=== PATIENT | female | born 1995 | race Caucasian/White ===

== ENCOUNTER 2023-06-30 15:06 | Outpatient (CLI) | payer OTHER, SELFPAY ==
[2023-07-03 06:21] LABS: Progesterone 8.3 ng/mL (***)
== END 2023-06-30 15:07 | disposition home or self-care (01) ==
LOC: ANHLAB 15:08
PROVIDERS: Visit Provider Student in an Organized Health Care Education/Training Program
DX: N91.2 Amenorrhea, unspecified (principal)
CPT/HCPCS: 36415; 84144

== ENCOUNTER 2023-07-02 11:55 | Outpatient (CLI) | payer OTHER, SELFPAY ==
--- NOTE | ~2023-07-02 | US_ITS ---
Pelvic ultrasound. Clinical History: Pelvic pain Technique: Realtime transabdominal and transvaginal scanning of the pelvis was performed. Color flow Doppler and Doppler spectral analysis were performed. Findings: The uterus is anteverted. The endometrial stripe has a thickness of 8 mm. No focal mass is identified. The right ovary measures 1.9 x 2.7 x 1.6 cm. No significant right ovarian or adnexal mass is seen. The left ovary measures 1.6 x 2.9 x 1.2 cm. No significant left ovarian or adnexal mass is seen. There is no evidence of free fluid in the cul de sac. Impression: Unremarkable pelvic ultrasound. Reviewed, dictated and finalized at location . IST Impression: Unremarkable pelvic ultrasound.
== END 2023-07-02 11:56 ==
LOC: MICIMG 11:57
PROVIDERS: PCP Student in an Organized Health Care Education/Training Program; Visit Provider Student in an Organized Health Care Education/Training Program
DX: R10.2 Pelvic and perineal pain (principal)
CPT/HCPCS: 76830; 76856

== ENCOUNTER 2024-02-06 14:13 | Outpatient (CLI) | payer OTHER, SELFPAY ==
[2024-02-07 02:54] LABS: Progesterone 10.6 ng/mL
[2024-02-08 06:29] LABS: FSH 3.1 mIU/mL
[2024-02-14 21:28] LABS: Estradiol, Ultrasensitive 134 pg/mL
== END 2024-02-06 14:14 | disposition home or self-care (01) ==
LOC: ANHLAB 14:15
PROVIDERS: PCP Student in an Organized Health Care Education/Training Program; Visit Provider Student in an Organized Health Care Education/Training Program
DX: Z30.09 Encounter for other general counseling and advice on contraception (principal)
CPT/HCPCS: 36415; 82670; 83001; 83036; 84144; 84443

== ENCOUNTER 2024-02-23 10:41 | Outpatient (CLI) | payer OTHER, SELFPAY ==
--- NOTE | ~2024-02-23 | XR_ITS ---
EXAMINATION: XR hysterosalpingogram DATE: 02/23/2024 12:17 INDICATION: Female infertility, unspecified. TECHNIQUE: Fluoroscopy was performed by the radiologist during contrast infusion into the endometrial cavity of the uterus by the primary physician. Fluoroscopy exposure time was 0.2 minutes. The total number of images was 4. FINDINGS: The intrauterine cavity is normal in morphology. The fallopian tubes are normal in caliber. There is normal free intraperitoneal spillage of contrast on either side. IMPRESSION: 1. Normal hysterosalpingogram. Reviewed, dictated and finalized at location A.
[2024-02-23 11:58] LABS: Beta HCG Quantitative < 2.39 mIU/ML
== END 2024-02-23 10:42 | disposition home or self-care (01) ==
LOC: ANHIMG 10:41
PROVIDERS: PCP Student in an Organized Health Care Education/Training Program; Visit Provider Student in an Organized Health Care Education/Training Program
DX: N97.9 Female infertility, unspecified (principal)
CPT/HCPCS: 36415; 58340; 74740; 84702

== ENCOUNTER 2025-01-13 08:40 | Observation (INO) | payer OTHER, SELFPAY ==
--- OUTSIDE RECORDS SUMMARY | 2025-01-13 08:52 | XMS_ITS | Clinical Summary ---
Author Organization [facility] Address [address] [place] [address] Care Team Providers Care Turfgrass Technician Name Role Phone Unavailable Primary Care Provider Unavailabl e Source Comments [facility],non-owned Affiliates and Associated Physician Practices is amultiple site organization consisting of ambulatory clinics and hospital sitesin [place], [place], [place] and [place]. This disclosure is being madepursuant to the Care Everywhere program and may not contain all information available regarding this patient. Last updated 18.[facility] Health Encounters Date Type Department Care Team Description 01/11/2025 1:00 PM CDT - 01/11/2025 11:59 PM CDT Hospital Encounter [facility] Maternal & Care [address] [place] [id number] Lul Ribeiro MD Discharge Disposition: Home or Self Care from Last 3 Months Social History Tobacco Use Types Packs/Day Years Used Date Smoking Tobacco: Never Assessed Estimated Date of Delivery Comme nts Yes 06/03/2025 Based on last me nstrual period of 08/27/2024 Sex and Gender Information Value Date Recorded Sex Assigned at Not on file Legal Sex Female 11:19 AM CDT Gender Identity Not on file Sexual Orientation Not on file Plan of Treatment Upcoming Encounters Date Type Department Care Team (Late st Contact Info) Description 02/08/2025 1:45 PM CDT Appointment [facility] Maternal & Care [address] [place] [address] Health Maintenance Due Date Last Done Comments HIV SCREENING 2009 HEPATITIS C SCREENING 03/24/2012 DTAP/TDAP/TD VACCINES (1 - Tdap) 2013 HEPATITIS B VACCINE (1 of 3 - 19+ 3-dose series) 2013 HPV VACCINE (1 - 3-dose SCDM series) 2021 COVID-19 VACCINE (3 - 2023-2 5 season) 2024 07/11/2020, 06/13/2020 DEPRESSION SCREENING 06/02/2024 INFLUENZA VACCINE (#1) 2025 6, 02/21/2012 OB-TDAP CURRENT 03/04/2025 08/19/2008 Respiratory Syncytial Virus (RSV) Vaccine Pt: or over 60 yrs (1 - Risk 1-dose series) 04/08/2025 ZOSTER VACCINE (1 of 2) 2044 HIB VACCINE Aged Out No longer eligi ble based on patient's age to complete this topic MENINGOCOCCAL (Group B) VACCINE SHARED DECISION-MAKING Aged Out No longer eligible based on patient's age to complete this topic MENINGOCOCCAL GROUPS A/C/Y/W VACCINE Aged Out No longer eligible b ased on patient's age to complete this topic PNEUMOCOCCAL VACCINE Aged Out No long er eligible based on patient's age to complete this topic Procedures Procedure Name Priority Date/Time Associated Diagnosis Comments SONOGRAM - COMPLETE Routine 01/11/2025 1:12 PM CDT Encounter for anatomic survey (HCC) 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 Initial weight 69 kg, 152 lb. Initial BMI 25.29 kg/m Method ====== Transabdominal and transvaginal ultrasound. View: Sufficient ========= Lizama . Number of fetuses: 1 Dating ====== Date Details Gest. age GIOVANA LMP 08/27/2024 19 w + 4 d 06/03/2025 U/S 01/11/2025 based upon AC, BPD, Femur, HC 19 w + 6 d 06/01/2025 Assigned dating based on the LMP, selected on 01/11/2025 19 w + 4 d 06/03/2025 General Evaluation Cardiac activity present. FHR 153 bpm. Presentation: breech Placenta: Placental site: anterior. Anterior Placenta Previa Umbilical cord: Cord vessels: 3 vessel cord. Insertion site: normal insertion Amniotic fluid: Amount of AF: normal. MVP 6.8 cm Biometry BPD 46.0 mm 19w 6d 65% Hadlock HC 166.9 mm 19w 3d 33% Hadlock Cerebellum tr 19.5 mm 41% [place] Nuchal fold 3.4 mm AC 151.4 mm 20w 3d 71% Hadlock Femur 30.8 mm 19w 4d 41% Hadlock Humerus 31.0 mm 20w 2d 78% Sujey HC / AC 1.10 -/- 11% Hadlock Weight Calculation: EFW 321 g 64% Hadlock EFW (lb,oz) 0 lb 11 oz EFW by Hadlock ([id number]) Head / Face / Neck Biometry: CM 6.3 mm 87% Nicolaides appropriate Growth Overview Exam date GA BPD (mm) HC (mm) AC (mm) FL (mm) HL (mm) EFW (g) 01/11/2025 19w 4d 46 65% 166.9 33% 151.4 71% 30.8 41% 31 78% 321 64% Anatomy The following structures appear normal: Head / Neck Cranium. Lateral ventricles. Choroid plexus. Midline falx. Cavum septi pellucidi. Cerebellum. Cisterna magna. Thalami. Face Lips. Profile. Nose. Nasal bone. Orbits. Heart / Thorax 4-chamber view. RVOT view. LVOT view. 3-vessel view. 2-jnopps-nhlijjd view. Situs. Aortic arch view. Bicaval view. Ductal arch view. Interventricular septum. Great vessels. Right lung. Left lung. Diaphragm. Abdomen Cord insertion. Stomach. Kidneys. Bladder. Bowel. Genitals. Spine Cervical spine. Thoracic spine. Lumbar spine. Sacral spine. Extremities / Skeleton Arms. Hands. Legs. Feet. sex: female. Maternal Structures Cervix reassuring Approach - Transvaginal: Cervical length 3.70 cm Right Ovary Not visualized Appearance: Adnexa appears normal Left Ovary Not visualized Appearance: Adnexa appears normal Impression ========= Single, live, intrauterine at 19w 4d size & amniotic fluid volume are normal No malformations were seen within the limitations of ultrasound Endovaginal U/S to better visualize cervix & placenta: Cervical length is normal-range ANTERIOR PLACENTA PREVIA Follow-up ======== Follow up ultrasound in 4 weeks for growth and reassess placental location Coding ====== Diagnoses O09.292: Supervision of with other poor reproductive or obstetric history Z36.3: Encounter for screening for malformations Procedures 33591: US Preg Uterus Detailed 46071: US Preg Uterus Transvaginal Social Touch PACS Anatomical Region Laterality Modality Other 01/11/2025 1:12 PM CDT Pavel Vanegas MD [facility] ORDERABLES Edited Result - Final from Last 3 Months Insurance [facility]
--- OUTSIDE RECORDS SUMMARY | 2025-01-13 08:52 | XMS_ITS | Encounter Summary ---
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 (HCC) Procedures Sonogram - Complete Pavel Rivera MD [address] [place] [address] Phone: tel: fax: Referral ID Status Reason Start Date Expiration Date V isits Requested Visits Authorized [id number] Pending Review 01/04/2025 01/04/2026 1 1 * (Routine) - Pending Review Specialty Diagnoses / Procedures Referred By oSng souza Referred To Contact Diagnoses Encounter for anatomic survey (HCC) 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 (HCC) Procedures Sonogram - Complete Pavel Rivera MD [address] [facility] [address] [place] [address] Phone: tel: fax: Referral ID Status Reason Start Date Expiration Date V isits Requested Visits Authorized [id number] Pending Review 01/04/2025 01/04/2026 1 1 Reason for Visit * Reason Comments Ultrasound * (Routine) - Pending Review Specialty Diagnoses / Procedures Referred By Contac t Referred To Contact Diagnoses Encounter for anatomic survey (HCC) 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 [address] [facility] [address] [place] [address] Phone: tel: fax: Referral ID Status Reason Start Date Expiration Date V isits Requested Visits Authorized [id number] Pending Review 01/04/2025 01/04/2026 1 1 Encounter Details Date Type Department Care Team (Latest Contact Info) Description 01/11/2025 1:00 PM CDT - 01/11/2025 11:59 PM CDT Hospital Encounter [facility] Maternal & Care [address] [place] [id number] Lul Ribeiro MD [address] [facility] [address] [place] [address] Discharge Disposition: Home or Self Care Social History Tobacco Use Types Packs/Day Years Used Date Smoking Tobacco: Never Assessed Estimated Date of Delivery Comme nts Yes 06/03/2025 Based on last me nstrual period of 08/27/2024 Sex and Gender Information Value Date Recorded Sex Assigned at Not on file Legal Sex Female 11:19 AM CDT Gender Identity Not on file Sexual Orientation Not on file documented as of this encounter Plan of Treatment Upcoming Encounters Date Type Department Care Team (Late st Contact Info) Description 02/08/2025 1:45 PM CDT Appointment [facility] Maternal & Care [facility] [place], [place] [phone] documented as of this encounter Procedures Procedure Name Priority Date/Time Associated Diagnosis Comments SONOGRAM - COMPLETE Routine 01/11/2025 1:12 PM CDT Encounter for anatomic survey (HCC) 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 RVOT view. LVOT view. 3-vessel view. 1-ntfisi-ghrhqdi view. Situs. Aortic arch view. Bicaval view. [...] Z36.3: Encounter for screening for malformations Procedures 11861: US Preg Uterus Detailed 94663: US Preg Uterus Transvaginal ProjectSpeaker PACS Anatomical Region Laterality Modality Other 01/11/2025 1:12 PM CDT us Pavel VALLEJO ORDERABLES Edited Result - Final documented in this encounter Visit Diagnoses Diagnosis Encounter for anatomic survey (HCC)- Primary Encounter for anatomic survey History of infertility Personal history of other genital system and obstetric disorders resulting from assisted reproductive technology in second trimester (HCC) documented in this encounter
[2025-01-13 09:02] VITALS: BP 102/62; PULSE 80
[2025-01-13 09:03] VITALS: BMI 26.4
[2025-01-13 09:13] VITALS: BP 102/62; PULSE 80; RESP 16
--- NOTE | 2025-01-13 09:30 | OBADM ---
This patient, Poly Coffey, admitted to the OB room OB Post 116 for observation. Patient/family oriented to hospital policies and general routines including ID bracelet, bed and alarms, visiting hours, pain management, procedures, bathroom and other care routines, personal items, smoking policy, room service/diet, and visiting hours. Patient/Family are encouraged to report perceived risks to care and to ask questions if they do not understand what they are told or what they should do.
--- NOTE | 2025-01-25 16:53 | PM.OBTRLD ---
OB - Triage/Final Diagnosis Visit Information Comments/Additional reasons for admission: I have assessed the risk for this patient, Polyalejandra Coffey, and determined that she would benefit from observation care. Final Diagnosis (1) Spotting affecting : Code(s): O26.859 - Spotting complicating , unspecified trimester Status: Acute
== END 2025-01-13 09:30 ==
PROVIDERS: Admitting Provider Obstetrics & Gynecology; Visit Provider Obstetrics & Gynecology
DX: O26.852 Spotting complicating pregnancy, second trimester (principal); Z3A.20 20 weeks gestation of pregnancy
CPT/HCPCS: G0378; G0379

== ENCOUNTER 2025-03-22 12:38 | Outpatient (CLI) | payer BC, SELFPAY ==
--- OUTSIDE RECORDS SUMMARY | 2025-03-22 15:16 | XMS_ITS | Clinical Summary ---
Author Organization [facility] Address [address] [place] [address] Care Team Providers Care Prism Measurer Name Role Phone Unavailable Primary Care Provider Unavailabl e Source Comments [facility],non-owned Affiliates and Associated Physician Practices is amultiple site organization consisting of ambulatory clinics and hospital sitesin [place], [place], [place] and [place]. This disclosure is being madepursuant to the Care Everywhere program and may not contain all information available regarding this patient. Last updated 18.[facility] Encounters Date Type Department Care Team Description 03/14/2025 11:11 AM CDT - 03/14/2025 11:59 PM CDT Hospital Encounter [facility] Maternal & Care [address] [place] [id number] Margaret Brumfield MD BASKET FILLER Discharge Disposition: Home or Self Care 02/08/2025 1:43 PM CDT - 02/08/2025 11:59 PM CDT Hospital Encounter [facility] Maternal & Care [address] [place] [id number] Octavio Koch DO BASKET FILLER Discharge Disposition: Home or Self Care 01/11/2025 1:00 PM CDT - 01/11/2025 11:59 PM CDT Hospital Encounter [facility] Maternal & Care [address] [place] [id number] Lul Ribeiro MD Discharge Disposition: Home or [...] Upcoming Encounters Date Type Department Care Team ([facility] st Contact Info) Description 04/11/2025 8:15 AM OVEN ROASTER Appointment [facility] Women's Health Maternal & Care [address] [place], [place] [phone] Health Maintenance Due Date Last Done Comments HIV SCREENING 2009 HEPATITIS C SCREENING 03/24/2012 DTAP/TDAP/TD VACCINES (1 - Tdap) 2013 HEPATITIS B VACCINE (1 of 3 - 19+ 3-dose series) 2013 PAP SMEAR 2015 HPV VACCINE (1 - 3-dose SCDM series) 2021 DEPRESSION SCREENING 06/02/2024 COVID-19 VACCINE (3 - 2024-2 6 season) 2025 07/11/2020, 06/13/2020 INFLUENZA VACCINE (#1) 2025 6, 02/21/2012 OB-ONE HOUR GLUCOSE 02/25/2025 OB-TDAP CURRENT 03/04/2025 08/19/2008 OB-RHOGAM INJECTION 03/11/2025 Respiratory Syncytial Virus (RSV) Vaccine Pt: or [...] Associated Diagnosis Comments SONOGRAM - COMPLETE Routine 03/14/2025 11:27 AM CDT resulting from assisted reproductive technology in second trimester (HCC) Encounter for ultrasound to assess growth (HCC) 28 weeks gestation of ([facility]) SONOGRAM - COMPLETE Routine 02/08/2025 1:44 PM CDT resulting from assisted reproductive technology in second trimester ([facility]) Encounter for follow-up ultrasound of anatomy ([facility]) Encounter for ultrasound to assess growth ([facility]) 23 weeks gestation of ([facility]) SONOGRAM - COMPLETE Routine 01/11/2025 1:12 PM CDT Encounter for anatomic survey ([facility]) 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 Linked Results Indication ======== Complete placenta previa NOS or without hemorrhage resulting from assisted reproductive technique History ====== OB History 1 Lab Tests Test Date Result NIPT Low risk, Female Maternal Assessment Physical Exam Height 165 cm, 5 ft 5 in. Weight 77 kg, 169 lb. Initial weight 69 kg, 152 lb. BMI 28.12 kg/m . Initial BMI 25.29 kg/m . Weight gain 8 kg, 17 lb Method ====== Transabdominal and transvaginal ultrasound. View: Sufficient ========= Lizama . Number of fetuses: 1 Dating ====== Date Details Gest. age GIOVANA LMP 08/27/2024 28 w + 3 d 06/03/2025 Stated GIOVANA 28 w + 3 d 06/03/2025 U/S 03/14/2025 based upon AC, BPD, Femur, HC 28 w + 4 d 06/02/2025 Assigned dating based on the LMP, selected on 01/11/2025 28 w + 3 d 06/03/2025 General Evaluation Cardiac activity present. FHR 154 bpm. Presentation: cephalic Placenta: Placental site: anterior, complete previa Amniotic fluid: Amount of AF: normal. MVP 7.0 cm. BRITTANY 20.4 cm. Q1 5.2 cm, Q2 7.0 cm, Q3 4.2 cm, Q4 4.0 cm Biometry BPD 68.8 mm 27w 5d 16% Hadlock HC 262.4 mm 28w 4d 22% Hadlock AC 252.2 mm 29w 3d 73% Hadlock Femur 54.0 mm 28w 4d 39% Hadlock Humerus 50.6 mm 29w 4d 76% Sujey HC / AC 1.04 Weight Calculation: EFW 1,308 g 56% Hadlock EFW (lb,oz) 2 lb 14 oz EFW by Hadlock ([id number]) appropriate Growth Overview Exam date GA BPD (mm) HC (mm) AC (mm) FL (mm) HL (mm) EFW (g) 01/11/2025 19w 4d 46 65% 166.9 33% 151.4 71% 30.8 41% 31 78% 321 64% 02/08/2025 23w 4d 57.5 45% 209 15% 198.5 71% 42.6 49% 41.3 81% 660 66% 03/14/2025 28w 3d 68.8 16% 262.4 22% 252.2 73% 54 39% 50.6 76% 1308 56% Anatomy The following structures appear normal: Abdomen Stomach. Kidneys. Bladder. sex: female. Maternal Structures Cervix reassuring Cervical length 3.50 cm Impression ========= Single, live, intrauterine at 28w 3d The size is appropriate. The amniotic fluid volume is normal. Anterior complete previa by transvaginal approach is again noted. While there is no evidence of accreta her a prior risks is 3%. Any hemorrhage should be appropriately managed at the time of delivery. No major malformations were seen within the limits of ultrasound. Follow-up ======== Follow up ultrasound in 4 weeks for growth assessment and to reevaluate placenta location and risk of accreta. Coding ====== Diagnoses O09.293: Supervision of with other poor reproductive or obstetric history Z36.3: Encounter for screening for malformations O09.813: Supervision of resulting from assisted reproductive technology O44.03: Complete placenta previa NOS or without hemorrhage Procedures 44887: [place] [address]: [place] Preg Uterus [facility]vaginal [facility] PACS Anatomical Region Laterality Modality Other 03/14/2025 11:2 7 AM CDT Pavel Vanegas MD [facility] ORDERABLES Edited Result - Final from Last 3 Months Insurance [facility]
[2025-03-22 23:38] LABS: Syphilis IgG/IgM Antibody Non-Reactive (Nonreactive)
== END 2025-03-22 12:39 | disposition home or self-care (01) ==
PROVIDERS: Visit Provider Obstetrics & Gynecology
DX: Z34.90 Encounter for supervision of normal pregnancy, unspecified, unspecified trimester (principal)
CPT/HCPCS: 36415; 86593

== ENCOUNTER 2025-04-02 13:22 | Observation (INO) | payer BC, SELFPAY ==
[2025-04-02] VITALS (7 sets, daily range): BP systolic 104–141; BP diastolic 49–77; PULSE 82–102; BMI 28.4
--- NOTE | 2025-04-02 13:30 | PC.NURSE ---
Presents to labor with c/o bleeding. Patient has a know previa, reports that she has filled one panty liner and has a fresh one one. Patient went to the Bathroom after arrival and it was noted to have a about a half to panty liner full now. Only a pink noted in toilet and on TP.
--- NOTE | 2025-04-02 13:35 | PC.NURSE ---
Attempted to call Dr Joseph voice main to return call left.
--- NOTE | 2025-04-02 13:46 | PC.NURSE ---
Call placed to Dr Joseph, no answer.
--- NOTE | 2025-04-02 13:55 | PC.NURSE ---
Dr Joseph phoned in and update given regarding bleeding, previa, gestation age, contractions and reassuring FHT's. Orders received.
[2025-04-02] MEDS: TERBUTALINE SULFATE 1 MG/ML VIAL 0.25 MG SUB-Q (14:01)
[2025-04-02 14:19] LABS: Hematocrit 36.1 % (37.0-47.0); Hemoglobin 12.5 g/dL (12.0-15.0); Mean Corpuscular HGB Conc 34.6 g/dl (32-36); Mean Corpuscular Hemoglobin 32.5 pg (26-34); Mean Corpuscular Volume 93.8 fl (80-100); Platelet Count Result 266 k/mm3 (150-375); Red Blood Count 3.85 M/mm3 (4.2-5.4); White Blood Count 15.2 K/mm3 (4.5-10.0)
[2025-04-02] MEDS: BETAMETHASONE SOD PHOS/ACETATE 30 MG/5 ML VIAL 12 MG IM (16:09)
--- NOTE | 2025-04-11 11:54 | PM.OBTRLD ---
OB - Triage/Final Diagnosis Visit Information Comments/Additional reasons for admission: I have assessed the risk for this patient, Poly Coffey, and determined that she would benefit from observation care. Evaluation Laboratory results: Laboratory Tests 04/02/25 14:11 WBC 15.2 H RBC 3.85 L Hgb 12.5 Hct 36.1 L MCV 93.8 MCH 32.5 MCHC 34.6 RDW 11.9 Plt Count 266 MPV 9.6 KB Hemoglobin Negative Final Diagnosis (1) Third trimester bleeding, antepartum: Code(s): O46.93 - Antepartum hemorrhage, unspecified, third trimester Status: Acute (2) Placenta previa: Qualifiers: Trimester: second trimester Qualified Code(s): O44.02 - Complete placenta previa NOS or without hemorrhage, second trimester Code(s): O44.00 - Complete placenta previa NOS or without hemorrhage, unspecified trimester Status: Acute
--- NOTE | 2025-04-11 11:57 | PM.OBTRLD ---
OB - Triage/Final Diagnosis Visit Information Comments/Additional reasons for admission: I have assessed the risk for this patient, oPly Coffey, and determined that she would benefit from observation care. Evaluation Laboratory results: Laboratory Tests 04/02/25 14:11 WBC 15.2 H RBC 3.85 L Hgb 12.5 Hct 36.1 L MCV 93.8 MCH 32.5 MCHC 34.6 RDW 11.9 Plt Count 266 MPV 9.6 KB Hemoglobin Negative Final Diagnosis (1) Third trimester bleeding, antepartum: Code(s): O46.93 - Antepartum hemorrhage, unspecified, third trimester Status: Acute (2) Placenta previa: Qualifiers: Trimester: second trimester Qualified Code(s): O44.02 - Complete placenta previa NOS or without hemorrhage, second trimester Code(s): O44.00 - Complete placenta previa NOS or without hemorrhage, unspecified trimester Status: Acute
== END 2025-04-02 16:15 | disposition home or self-care (01) ==
PROVIDERS: Admitting Provider Obstetrics & Gynecology; Visit Provider Obstetrics & Gynecology
DX: O44.13 Complete placenta previa with hemorrhage, third trimester (principal); Z3A.31 31 weeks gestation of pregnancy
CPT/HCPCS: 36415; 85027; 85460; 96372; G0378; G0379; J0702; J3105

== ENCOUNTER 2025-04-03 15:57 | Observation (INO) | payer BC, SELFPAY ==
[2025-04-03] VITALS (30 sets, daily range): BP systolic 105–132; BP diastolic 55–72; PULSE 78–118; O2SAT 97–100
--- NOTE | 2025-04-03 16:00 | PC.NURSE ---
Patient presents to labor for her second celestone injection. Patient reports that she is still having some bleeding, reports that she has filled three panty liners in the last 24 hours, Patient has known HX of a complete previa. Patient also reports a decrease in movement and some back pain. Discussed being evaluated for contractions and being placed on the monitor for awhile patient agrees.
[2025-04-03] MEDS: BETAMETHASONE SOD PHOS/ACETATE 30 MG/5 ML VIAL 12 MG IM (16:28)
--- NOTE | 2025-04-03 18:19 | PC.NURSE ---
Dr Joseph notified that contractions are still occuring after procardia, terb ordered.
[2025-04-03] MEDS: TERBUTALINE SULFATE 1 MG/ML VIAL 0.25 MG SUB-Q (18:30)
--- NOTE | 2025-04-03 19:48 | PC.NURSE ---
Call placed to Dr. Joseph, reviewed CTX, FHR, Bleeding. Pt feeling some back pain on and off, unsure if it is releated to ctx. Order to discharge pt home undelivered.
--- NOTE | 2025-05-02 09:09 | PM.OBTRLD ---
OB - Triage/Final Diagnosis Visit Information Comments/Additional reasons for admission: I have assessed the risk for this patient, Poly Ayalascottynoemi, and determined that she would benefit from observation care. Final Diagnosis (1) contractions: Code(s): O47.00 - False labor before 37 completed weeks of gestation, unspecified trimester Status: Acute
== END 2025-04-03 20:00 | disposition home or self-care (01) ==
PROVIDERS: Admitting Provider Obstetrics & Gynecology; Visit Provider Obstetrics & Gynecology
DX: O47.03 False labor before 37 completed weeks of gestation, third trimester (principal); Z3A.31 31 weeks gestation of pregnancy
CPT/HCPCS: 96372; A9270; G0378; G0379; J0702; J3105

== ENCOUNTER 2025-04-18 16:52 | Outpatient (RCR) | payer BC, SELFPAY ==
[2025-04-18 17:52] VITALS: BP 120/73; PULSE 86
== END 2025-05-21 11:31 | disposition other institution (70) ==
LOC: ANHOBOP 16:52
PROVIDERS: Visit Provider Obstetrics & Gynecology
DX: O44.13 Complete placenta previa with hemorrhage, third trimester (principal); O88.213 Thromboembolism in pregnancy, third trimester; Z3A.33 33 weeks gestation of pregnancy
CPT/HCPCS: 59025

== ENCOUNTER 2025-05-05 08:36 | Observation (INO) | payer BC, SELFPAY ==
[2025-05-05] VITALS (46 sets, daily range): BP systolic 107–126; BP diastolic 64–74; PULSE 73–106; TEMP 36.8; O2SAT 96–100; BMI 30.4
--- NOTE | ~2025-05-05 | US_ITS ---
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 Findings: Single live intrauterine in longitudinal lie and vertex presentation, heart rate 157. Placenta located anteriorly, there is no gross retroplacental fluid collection BRITTANY was not obtained, DVP 6.47. BPP 8/8. IMPRESSION: Single live intrauterine detailed above Reviewed, dictated and finalized at location P. [employer] [employer] [facility]
--- OUTSIDE RECORDS SUMMARY | 2025-05-05 09:27 | XMS_ITS | Clinical Summary ---
Author Organization [facility] Address [facility] [place] [address] Care Team Providers Care Asbestos Wire Finisher Name Role Phone Unavailable Primary Care Provider Unavailabl e Source Comments [facility],non-owned Affiliates and Associated Physician Practices is amultiple site organization consisting of ambulatory clinics and hospital sitesin [place], [place], [place] and [place]. This disclosure is being madepursuant to the Care Everywhere program and may not contain all information available regarding this patient. Last updated 18.[facility] Allergies No known active allergies Medications * Be aware that medications may not be up to date on this document. Alwaysverify current medications with the patient. Vit-Fe Fumarate-FA ( vitamin) 28-0.8 MG tablet Take 1 (one) tablet by mouth once daily Active famotidine (Pepcid AC Maximum Strength) 20 MG tablet Take 1 (one) tablet by mouth once daily as needed for Heartburn Active MAGNESIUM CITRATE PO Take 500 mg by mouth once daily as needed (at bedtime) Active Active Problems Problem Noted Date Diagnosed Date Placenta previa antepartum 04/04/2025 Estimated Date of Delivery Comme nts Yes 06/03/2025 Based on last me nstrual period of 08/27/2024 Encounters Date Type Department Care Team Description 04/05/2025 Telephone [facility] MATERNAL/ EVALUATION UNIT [facility]. [address] [place] [address] Tenisha Schwartz RN Hospital Follow-up 04/04/2025 12:15 PM ELOCUTION TEACHER - 04/05/2025 2:44 PM ELOCUTION TEACHER Hospital Encounter [facility] 5E ANTEPARTUM/MOTHER BABY [address] [place] [address] Eleuterio Mccollum MD FITNESS SERVICES MANAGER Discharge Disposition: Home or Self Care 04/04/2025 Travel 03/14/2025 11:11 AM CDT - 03/14/2025 11:59 PM CDT Hospital Encounter [facility] [address] [place] [id number] Margaret Brumfield MD FITNESS SERVICES MANAGER Discharge Disposition: Home or Self Care 02/08/2025 1:43 PM CDT - 02/08/2025 11:59 PM CDT Hospital Encounter [facility] [address] [place] [id number] Octavio Koch DO FITNESS SERVICES MANAGER Discharge Disposition: Home or Self Care from Last 3 Months Social History Tobacco Use Types Packs/Day Years Used Date Smoking Tobacco: Never Smokeless Tobacco: Never Tobacco Cessation:Counseling Given: Not Answered Alcohol Use Standard Drinks/Week Comments Not Currently 0 (1 standard drink = 0.6 oz pur e alcohol) Overall Financial Resource Strain (CARDIA) Answe r Date Recorded How hard is it for you to pa y for the very basics like food, housing, medical care, and heating? Not hard at all 04/04/2025 [facility] - Occupational Stress Questionnaire Answer Date Recorded Do you feel stress - tense, restless, nervous, or anxious, or unable to sleep at night because your mind is troubled all the time - these days? Not at all 04/04/2025 Hunger Vital Sign Answer Date Recorded Within the past 12 months, y ou worried that your food would run out before you got the money to buy more. Never true 04/04/20 25 Within the past 12 months, t he food you bought just didn't last and you didn't have money to get more. Never true 04/04/2025 PRAPARE - Transportation Answer Date Re corded In the past 12 months, has l ack of transportation kept you from medical appointments or from getting medications? No 07/2024 In the past 12 months, has l ack of transportation kept you from meetings, work, or from getting things needed for daily living? No 04/04/2025 Housing Stability Vital Sign Answer Harvey e Recorded In the last 12 months, was t here a time when you were not able to pay the mortgage or rent on time? No 04/04/2025 In the past 12 months, how m any times have you moved where you were living? 0 04/04/2025 At any time in the past 12 m [facility], were you homeless or living in a half-way (including now)? No 04/04/2025 Estimated Date of Delivery Comme nts Yes 06/03/2025 Based on last me nstrual period of 08/27/2024 Sex and Gender Information Value Date Recorded Sex Assigned at Not on file Legal Sex Female 11:19 AM CDT Gender Identity Not on file Sexual Orientation Not on file Last Filed Vital Signs Vital Sign Reading Time Taken Comments Blood Pressure 119/74 04/05/2025 8:40 AM ELOCUTION TEACHER Pulse 79 04/05/2025 8:40 AM ELOCUTION TEACHER Temperature 36.8 C (98.3 F) 04/05/2025 8:40 AM ELOCUTION TEACHER Respiratory Rate 15 04/05/2025 8:40 AM ELOCUTION TEACHER Oxygen Saturation 98% 04/05/2025 8:40 AM ELOCUTION TEACHER Inhaled Oxygen Concentration - - Weight 80.6 kg (177 lb 9.6 oz) 04/04/2025 12:22 PM ELOCUTION TEACHER Height 165.1 cm (5' 5) 04/04/2025 12:26 PM ELOCUTION TEACHER Body Mass Index 29.55 04/04/2025 12:22 PM ELOCUTION TEACHER Plan of Treatment Health Maintenance Due Date Last Done Comments [...] HOUR GLUCOSE 02/25/2025 OB-TDAP CURRENT 03/04/2025 08/19/2008 Respiratory Syncytial Virus (RSV) Vaccine Pt: or over 60 yrs (1 - Risk 1-dose series) 04/08/2025 OB-GROUP B STREP SCREEN 04/29/2025 ZOSTER VACCINE (1 of 2) 2044 HIB [...] Procedure Name Priority Date/Time Associated Diagnosis Comments IMAGING/RADIOLOGY/XRA Y RESULTS ORDER 04/06/2025 4:56 PM ELOCUTION TEACHER SONOGRAM - COMPLETE Routine 04/05/2025 7 :48 AM ELOCUTION TEACHER TYPE + SCREEN PANEL STAT 04/04/2025 3 :52 PM ELOCUTION TEACHER DIFFERENTIAL MANUAL STAT 04/04/2025 3 :52 PM ELOCUTION TEACHER Placenta previa antepartum (HCC) CBC W AUTO DIFFERENTIAL STAT 04/04/2025 3:52 PM ELOCUTION TEACHER Placenta previa antepartum (HCC) URINALYSIS REFLEX MICROSCOPIC REFLEX CULTURE Routine 04/04/2025 1:27 PM ELOCUTION TEACHER Placenta previa antepartum (HCC) CHLAMYDIA AND N. GONORRHOEAE SHIV STAT 04/04/2025 1:27 PM ELOCUTION TEACHER Placenta previa antepartum (HCC) TRICHOMONAS VAGINALIS SHIV STAT 04/04/2025 1:27 PM ELOCUTION TEACHER Placenta previa antepartum (HCC) SONOGRAM - COMPLETE Routine 03/14/2025 1 1:27 AM CDT resulting from assisted reproductive technology in second trimester (HCC) Encounter for ultrasound to assess growth ([facility]) 28 weeks gestation of ([facility]) SONOGRAM - COMPLETE Routine 02/08/2025 1 :44 PM CDT resulting from assisted reproductive technology in second trimester ([facility]) Encounter for follow-up ultrasound of anatomy ([facility]) Encounter for ultrasound to assess growth ([facility]) 23 weeks gestation of ([facility]) from Last 3 Months Results * IMAGING/RADIOLOGY/XRAY RESULTS ORDER (04/06/2025 4:56 PM ELOCUTION TEACHER) Anatomical Region Laterality Modality Other Narrative 04/06/2025 4:56 PM ELOCUTION TEACHER Ordered by an unspecified provider. us Scanned Document IMAGING Final Result * Sonogram - Complete (04/05/2025 7:48 AM ELOCUTION TEACHER) Only the most recent of3 resultswithin the time period is included. Linked Results Indication ======== Complete placenta previa NOS or without hemorrhage Vaginal bleeding resulting from assisted reproductive technique History ====== OB History 1 Lab Tests Test Date Result NIPT Low risk, Female Maternal Assessment Physical Exam Height 165 cm, 5 ft 5 in. Weight 80 kg, 177 lb. Initial weight 69 kg, 152 lb. BMI 29.45 kg/m . Initial BMI 25.29 kg/m . Weight gain 11 kg, 25 lb Method ====== Transabdominal and transvaginal ultrasound. View: Sufficient ========= Lizama . Number of fetuses: 1 Dating ====== Date Details Gest. age GIOVANA LMP 08/27/2024 31 w + 4 d 06/03/2025 Stated GIOVANA 31 w + 4 d 06/03/2025 U/S 04/05/2025 based upon AC, BPD, Femur, HC 31 w + 5 d 06/02/2025 Assigned dating based on the LMP, selected on 01/11/2025 31 w + 4 d 06/03/2025 General Evaluation Cardiac activity present. FHR 141 bpm. Presentation: cephalic Placenta: Placental site: anterior, previa Amniotic fluid: Amount of AF: normal. MVP 7.3 cm. BRITTANY 16.8 cm. Q1 2.7 cm, Q2 7.3 cm, Q3 4.3 cm, Q4 2.4 cm Biometry BPD 74.9 mm 30w 0d 6% Hadlock HC 289.2 mm 31w 6d 20% Hadlock AC 287.1 mm 32w 5d 80% Hadlock Femur 61.8 mm 32w 0d 50% Hadlock HC / AC 1.01 Weight Calculation: EFW 1,921 g 59% Hadlock EFW (lb,oz) 4 lb 4 oz EFW by Hadlock ([id number]) appropriate Growth Overview Exam date GA BPD (mm) HC (mm) AC (mm) FL (mm) HL (mm) EFW (g) 01/11/2025 19w 4d 46 65% 166.9 33% 151.4 71% 30.8 41% 31 78% 321 64% 02/08/2025 23w 4d 57.5 45% 209 15% 198.5 71% 42.6 49% 41.3 81% 660 66% 03/14/2025 28w 3d 68.8 16% 262.4 22% 252.2 73% 54 39% 50.6 76% 1308 56% 04/05/2025 31w 4d 74.9 6% 289.2 20% 287.1 80% 61.8 50% 1921 59% Anatomy The following structures appear normal: Abdomen Stomach. Kidneys. Bladder. sex: female. Maternal Structures Cervix reassuring Approach - Transvaginal: Cervical length 3.56 cm Impression ========= Single, live, intrauterine at 31w4d The size is AGA The amniotic fluid volume is normal Transvaginal cervical length is reassuring Marginal placenta previa - posterior/lateral aspect No major malformations were seen within the limits of ultrasound Comment ======== The patient was inpatient at the time of the study. ultrasound alone cannot detect all structural, genetic, or functional , placental, or maternal abnormalities Follow-up ======== Follow up ultrasound as clinically indicated and per inpatient management team Coding ====== Diagnoses O09.813: Supervision of resulting from assisted reproductive technology O44.03: Complete placenta previa NOS or without hemorrhage Procedures 85804: [place] [address]: [place] Preg Uterus Transvaginal [facility] [employer] PACS Anatomical Region Laterality Modality Other 04/05/2025 7:48 AM ELOCUTION TEACHER us Eleuterio Mccollum MD [facility] ORDERABLES Edited Result - Final * TYPE + SCREEN PANEL (04/04/2025 3:52 PM ELOCUTION TEACHER) ABO Rh AB POS 04/04/2025 4:36 PM ELOCUTION TEACHER [facility] Comment:No history; collect retype. Antibody Screen NEG 04/04/2025 4:36 PM ELOCUTION TEACHER [facility] Blood Bank BLOOD SPECIMEN / Unknown Venipuncture / Unknown 04/04/2025 3:52 PM ELOCUTION TEACHER 04/04/2025 3:54 PM ELOCUTION TEACHER Eleuterio Mccollum MD LAB - BLOOD BANK ORDERABLES F inal Result [facility] [address] [phone] * (ABNORMAL) DIFFERENTIAL MANUAL (04/04/2025 3:52 PM ELOCUTION TEACHER) Neutrophil % 81(H) 41 - 74 % 04/04/2025 4:23 PM ELOCUTION TEACHER [facility] Lymphocyte % 12(L) 17 - 47 % 04/04/2025 4:23 PM ELOCUTION TEACHER [facility] Monocyte % 6 3 - 11 % 04/04/2025 4:23 PM ELOCUTION TEACHER [facility] Myelocyte % 1(H) 0% % 04/04/2025 4:23 PM ELOCUTION TEACHER [facility] Neutrophil Absolute 19.12(H) 1.60 - 7.50 x10E9/L 04/04/2025 4:[address] [facility] Lymphocyte Absolute 2.83 1.00 - 4.40 x10E9/L 04/04/2025 4:[address] [facility] Monocyte Absolute 1.42(H) 0.15 - 1.00 x10E9/L 04/04/2025 4:[address] [facility] RBC Morphology NORMAL 04/04/2025 4:[address] [facility] Blood BLOOD SPECIMEN / Unknown Venipuncture / Unknown 04/04/2025 3:52 PM ELOCUTION TEACHER 04/04/2025 4:08 PM ELOCUTION TEACHER us Eleuterio Mccollum MD LAB - HEMATOLOGY ORDERABLES F inal Result [facility] [address] [place], [place] [id number] * (ABNORMAL) CBC W AUTO DIFFERENTIAL (04/04/2025 3:52 PM ELOCUTION TEACHER) WBC 23.6(H) 4.0 - 10.7 x10E9/L 04/04/2025 4:[address] [facility] RBC Count 3.72(L) 3.90 - 5.20 x10E12/L 04/04/2025 4:[address] [facility] Hemoglobin 12.4 11.9 - 15.8 g/dL 04/04/2025 4:[address] [facility] Hematocrit 36.0 34.8 - 46.1 % 04/04/2025 4:[address] [facility] MCV 96.8 80.0 - 98.0 fL 04/04/2025 4:[address] [facility] MCH 33.3 26.7 - 33.6 pg 04/04/2025 4:[address] [facility] MCHC 34.4 31.7 - 36.3 g/dL 04/04/2025 4:[address] [facility] RDW-CV 12.3 11.3 - 14.8 % 04/04/2025 4:[address] [facility] Platelet Count 307 150 - 420 x10E9/L 04/04/2025 4:23 PM ELOCUTION TEACHER [facility] MPV 11.4 7.8 - 11.4 fL 04/04/2025 4:23 PM ELOCUTION TEACHER [facility] Blood BLOOD SPECIMEN / Unknown Venipuncture / Unknown 04/04/2025 3:52 PM ELOCUTION TEACHER 04/04/2025 4:08 PM ELOCUTION TEACHER us Eleuterio Mccollum MD LAB - HEMATOLOGY ORDERABLES F inal Result [facility] [address] [place] [address] * TRICHOMONAS VAGINALIS SHIV (04/04/2025 1:27 PM ELOCUTION TEACHER) Trichomonas by SHIV NEGATIVE NEGATIVE 04/05/2025 12:00 AM ELOCUTION TEACHER [facility] Microbiology URINE / Unknown Collection / Unknown 04/04/2025 1:27 PM ELOCUTION TEACHER 04/04/2025 1:34 PM ELOCUTION TEACHER Narrative [facility] - 04/05/2025 12:00 AM ELOCUTION TEACHER This test performed by Qualitative real-time Polymerase Chain Reaction (PCR). us Eleuterio Mccollum MD LAB - MICROBIOLOGY ORDERABLES Final Result Performing Organization Address City/[facility] Co de Phone Number [facility] [address] [place] [address], [facility] [phone] * CHLAMYDIA AND N. GONORRHOEAE SHIV (04/04/2025 1:27 PM ELOCUTION TEACHER) Chlamydia by SHIV NEGATIVE NEGATIVE 04/05/2025 12:00 AM ELOCUTION TEACHER [facility] Neisseria gonorrhoeae SHIV NEGATIVE NEGATIVE 04/05/2025 12:00 AM ELOCUTION TEACHER [facility] MICRO[facility] Microbiology URINE / Unknown Collection / Unknown 04/04/2025 1:27 PM ELOCUTION TEACHER 04/04/2025 1:34 PM ELOCUTION TEACHER Narrative [facility] - 04/05/2025 12:00 AM ELOCUTION TEACHER This test performed by Qualitative real-time Polymerase Chain Reaction (PCR). us Eleuterio Mccollum MD LAB - MICROBIOLOGY ORDERABLES Final Result [facility] [address] [place] [address], [facility] [phone] * (ABNORMAL) URINALYSIS REFLEX MICROSCOPIC REFLEX CULTURE (04/04/2025 1:27 PM ELOCUTION TEACHER) Color UA Colorless(A) Yellow, Straw 04/04/2025 1:52 PM ELOCUTION TEACHER [facility] Clarity UA Clear Clear 04/04/2025 1:52 PM ELOCUTION TEACHER [facility] Glucose UA Normal Normal 04/04/2025 1:52 PM ELOCUTION TEACHER [facility] Bilirubin UA Negative Negative 04/04/2025 1:52 PM ELOCUTION TEACHER [facility] Ketone UA Negative Negative 04/04/2025 1:52 PM ELOCUTION TEACHER [facility] Specific [place] UA <1.005(L) 1.005 - 1.030 04/04/2025 1:52 PM ELOCUTION TEACHER [facility] Blood UA Trace(A) Negative 04/04/2025 1:52 PM ELOCUTION TEACHER [facility] pH UA 7.0 5.0 - 8.0 04/04/2025 1:52 PM ELOCUTION TEACHER [facility] Protein UA Negative Negative 04/04/2025 1:52 PM ELOCUTION TEACHER [facility] Urobilinogen UA Normal Normal mg/dL 04/04/2025 1:52 PM ELOCUTION TEACHER [facility] Nitrite UA Negative Negative 04/04/2025 1:52 PM ELOCUTION TEACHER [facility] Leukocyte Esterase UA Negative Negative 04/04/2025 1:52 PM ELOCUTION TEACHER [facility] RBC UA None Seen 0 - 5 # /hpf 04/04/2025 1:52 PM ELOCUTION TEACHER [facility] WBC UA 0-5 0 - 5 # /hpf 04/04/2025 1:52 PM ELOCUTION TEACHER [facility] Bacteria UA Trace(A) None Seen 04/04/2025 1:52 PM ELOCUTION TEACHER [facility] Squamous Epithelial Cells 0-2 0 - 5 /hpf 04/04/2025 1:52 PM ELOCUTION TEACHER [facility] Mucus UA 1+ /LPF 04/04/2025 1:52 PM ELOCUTION TEACHER [facility] Reflex Status Culture not indicated 04/04/2025 1:52 PM ELOCUTION TEACHER [facility] Urine URINE SPECIMEN OBTAINED BY CLEAN CATCH PROCEDURE / Unknown Collection / Unknown 04/04/2025 1:27 PM ELOCUTION TEACHER 04/04/2025 1:34 PM ELOCUTION TEACHER us Eleuterio Mccollum MD LAB - URINALYSIS ORDERABLES F inal Result [facility] [address] [place] [address] from Last 3 Months Insurance ANTH Advance Directives * Full Code (Latest Code Status on File) Date Activated Date Inactivated Comments 04/04/2025 3:48 PM 04/05/2025 3:44 PM
[2025-05-05 09:30] LABS: OBXCEM ROM Plus Negative (Negative)
--- NOTE | 2025-05-05 17:16 | OBADM ---
This patient, Poly Coffey, admitted to the OB room OB Post 117 for observation. Patient/family oriented to hospital policies and general routines including ID bracelet, bed and alarms, visiting hours, pain management, procedures, bathroom and other care routines, personal items, smoking policy, room service/diet, and visiting hours. Patient/Family are encouraged to report perceived risks to care and to ask questions if they do not understand what they are told or what they should do.
--- NOTE | 2025-05-05 17:18 | PC.NURSE ---
Addendum entered by Betzaida Hutchins RN 05/05/25 17:36: 0840- Patient arrives to OB unit with complaints of a fall at 0700 when she was walking to her car for work. Patient states she slipped on ice and landed in the splits, when she landed in the splits she caught herself with her hands and felt a 'pop' and had a gush of fluid that she felt was probably just pee. Patient denies any vaginal bleeding, patient states she is having movement, but it has decreased since the fall. Patient is a complete placenta previa and is scheduled for a , patient also has a history of labor with this , but no other complications. Patient states she is having right wrist pain rating it a 5/10, pelvic pain 5/10, and cramping 2/10. Patient states her pelvic pain is only when she is up and moving, but not painful at rest. Abdomen soft to palpation in between contractions. 0855- RN notified Dr. Mccollum of patient arrival and complaints. RN notified MD of FHR tracing as well as contraction pattern. MD gave orders for a ROM+, BPP, placenta check, and to offer the patient a wrist x-ray. MD also gave orders for a dose of procardia 10mg, see MAR. RN also notified MD of pain patient is experiencing. Original Note: 0840- Patient arrives to OB unit with complaints of a fall at 0700 when she was walking to her car for work. Patient states she slipped on ice and landed in the splits, when she landed in the splits she caught herself with her hands and felt a 'pop' and had a gush of fluid that she felt was probably just pee. Patient denies any vaginal bleeding, patient states she is having movement, but it has decreased since the fall. Patient is a complete placenta previa and is scheduled for a , patient also has a history of labor with this , but no other complications. 0855- RN notified Dr. Mccollum of patient arrival and complaints. RN notified MD of FHR tracing as well as contraction pattern. MD gave orders for a ROM+, BPP, placenta check, and to offer the patient a wrist x-ray. MD also gave orders for a dose of procardia 10mg, see MAR.
--- NOTE | 2025-05-08 23:20 | PM.OBTRLD ---
OB - Triage/Final Diagnosis Visit Information Comments/Additional reasons for admission: I have assessed the risk for this patient, Poly Coffey, and determined that she would benefit from observation care. Evaluation Laboratory results: Laboratory Tests 05/05/25 09:27 Membranes Rupture Rom plus negative Final Diagnosis (1) Fall: Code(s): W19.XXXA - Unspecified fall, initial encounter Status: Acute
== END 2025-05-05 11:42 ==
PROVIDERS: Admitting Provider Obstetrics & Gynecology; Visit Provider Obstetrics & Gynecology
DX: O9A.213 Injury, poisoning and certain other consequences of external causes complicating pregnancy, third trimester (principal); Z3A.36 36 weeks gestation of pregnancy; W19.XXXA Unspecified fall, initial encounter
CPT/HCPCS: 76815; 76819; 84112; A9270; G0378; G0379

== ENCOUNTER 2025-05-07 11:55 | Outpatient (CLI) | payer BC, SELFPAY ==
[2025-05-07 12:12] LABS: Hematocrit 37.9 % (37.0-47.0); Hemoglobin 13.4 g/dL (12.0-15.0); Immature Granulocyte Percent A 4.1 % (0-0.5); Lymphocytes Absolute Auto 1.98 K/mm3 (0.9-3.2); Mean Corpuscular HGB Conc 35.4 g/dl (32-36); Mean Corpuscular Hemoglobin 32.8 pg (26-34); Mean Corpuscular Volume 92.9 fl (80-100); Nucleated Red Blood Cells Absolute Auto 0.000 K/mm3 (0.0-0.012); Nucleated Red Blood Cells Perc 0.0 % (0.0-0.2); Platelet Count Result 252 k/mm3 (150-375); Red Blood Count 4.08 M/mm3 (4.2-5.4); White Blood Count 13.6 K/mm3 (4.5-10.0)
[2025-05-07 13:05] LABS: Syphilis IgG/IgM Antibody Non-Reactive (Nonreactive)
[2025-05-09 09:11] VITALS: BMI 30.8
== END 2025-05-07 11:56 | disposition home or self-care (01) ==
LOC: ANHOBOP 11:58
PROVIDERS: Visit Provider Obstetrics & Gynecology
DX: Z01.812 Encounter for preprocedural laboratory examination (principal)
CPT/HCPCS: 36415; 85025; 86593; 86850; 86900; 86901

== ENCOUNTER 2025-05-09 08:51 | Inpatient (IN) | payer BC, SELFPAY ==
[2025-05-09] VITALS (40 sets, daily range): BP systolic 95–133; BP diastolic 43–86; PULSE 55–180; RESP 12–17; TEMP 36.2–36.8; O2SAT 94–100; BMI 30.8
--- NOTE | 2025-05-09 08:54 | PM.IMHP2 ---
H&P: HPI History of Present Illness Date/Time: 05/09/25 08:54 Chief Complaint: Previa Narrative: 30 y/o G1 at 36 4/7 weeks with persistent placenta previa. She continues to have intermittent bleeding episodes. She received a course of steroids previously. She is here for primary delivery. Review of Systems Review of Systems: All systems reviewed & are unremarkable except as noted in HPI and below PMFSH Family History Family History Father Hypertension Grandparent Lung cancer Social History Social History Smoking status: Never smoker Alcohol intake: current Substance use: never Substance use type: marijuana Lack of Transportation: No Lack of Food: Never True Current Housing: I Have Housing Concerned About Future Housing: No Difficulty Paying Gas/Electric Bills: No Difficulty Paying for Meds: No Currently Unemployed: No Education: Bachelor's Degree Difficulty w/ Childcare or Family Care: No Living arrangements: other Additional living arrangements comments: spouse Occupation/Education: occupation Gender identity (if verbalized by the patient): Female Sexual Orientation (if Verbalized by the Patient): Straight or Heterosexual Spiritual care concerns: No Meds Home Medications and Allergies Home Medications ?Medication ?Instructions ?Recorded ?Confirmed ?Type vits no.126-ferrous fum 1 tablet PO DAILY 06/30/23 05/07/25 History 28 mg iron-folic acid 800 mcg tablet (Classic ) esomeprazole magnesium 20 mg 20 mg PO DAILY 12/06/24 05/07/25 History capsule,delayed release folic acid 0.8 mg capsule 0.8 mg PO DAILY 12/06/24 05/07/25 History nifedipine 10 mg capsule 10 mg PO Q6H PRN frequent 04/02/25 05/07/25 Rx contractions #30 caps Allergies Allergy/AdvReac Type Severity Reaction Status Date / Time No Known Allergies Allergy Verified 05/07/25 11:15 Exam Const: Other: Well-developed, well-nourished female in no acute distress. Neck: Other: Neck: Trachea midline, no thyromegaly or masses. Resp: Other: Lungs: Normal respiratory effort. Clear to auscultation bilaterally. Cardio: Other: Heart: Regular rate and rhythm with normal S1-S2. GI: Other: ABD: Soft, nontender, nondistended, gravid. No guarding or rebound tenderness. No hepatosplenomegaly. heartbeat auscultated. : Other: Cervix not examined. Back/Spine/Pelvis: Other: Back: No CVA tenderness. Skin: Other: Skin: No lesions, rashes or ulcers noted. Extrem: Other: Extremities: nontender with no edema Psych: Other: Mental status grossly normal, with normal mood and affect. Assessment and Plan Assessment and plan (1) : Qualifiers: Weeks of gestation: 32 weeks Qualified Code(s): Z3A.32 - 32 weeks gestation of Code(s): Z34.90 - Encounter for supervision of normal , unspecified, unspecified trimester Status: Acute Assessment and Plan: A: IUP at 36 4/7 weeks with placenta previa, persistent and intermittent bleeding. P: Offered primary . She understands risks of surgery to include risks of anesthesia, risks of pain, infection, bleeding, blood products, thromboembolic phenomena and damage to adjacent structures such as bowel, bladder, ureters, blood vessels and nerves. We also reviewed risks associated with prematurity. She understands all these risks and elects to proceed with surgery. (2) Placenta previa: Qualifiers: Trimester: second trimester Qualified Code(s): O44.02 - Complete placenta previa NOS or without hemorrhage, second trimester Code(s): O44.00 - Complete placenta previa NOS or without hemorrhage, unspecified trimester Status: Acute (3) Third trimester bleeding, antepartum: Code(s): O46.93 - Antepartum hemorrhage, unspecified, third trimester Status: Acute
[2025-05-09] MEDS: ACETAMINOPHEN 500 MG TABLET 1000 MG PO ×2 (09:23→19:02)
--- NOTE | 2025-05-09 09:41 | LDADM ---
This patient, Poly Coffey, was admitted to Labor/Delivery/Recovery 120 on 05/09/25 at 08:51. Plans for labor, pain management and were discussed with patient. Patient/family oriented to hospital policies and general routines including ID bracelet, bed and alarms, visiting hours, pain management, procedures, bathroom and other care routines, personal items, smoking policy, room service/diet and guest tray routines, infant security routines, and visiting hours. Patient/Family are encouraged to report perceived risks to care and to ask questions if they do not understand what they are told or what they should do. See OBIX for further documentation.
[2025-05-09] MEDS: LACTATED RINGERS 1,000 ML 125 ML IV CONT ×2 (09:50→10:37)
--- NOTE | 2025-05-09 10:26 | WPDANESEPPF ---
Anes - Initial Pre Proc Eval Procedure: Operation Date: 05/09/25 11:00 Proposed Procedures p Primary Section - Eleuterio Mccollum MD Date/Time: 05/09/25 10:26 Surgeon: Eleuterio Mccollum MD Pre Op Diagnosis: c section Patient Data Age: 30 Gender: F Height: 1.65 m Weight: 84 kg Last Vital Signs Pulse 106 H 05/09/25 10:15 BP 133/82 05/09/25 10:15 O2 Del Method Room Air 05/09/25 10:08 Allergies Allergy/AdvReac Type Severity Reaction Status Date / Time No Known Allergies Allergy Verified 05/09/25 10:09 Home Medications ?Medication ?Instructions ?Recorded ?Confirmed ?Type vits no.126-ferrous fum 1 tablet PO DAILY 06/30/23 05/07/25 History 28 mg iron-folic acid 800 mcg tablet (Classic ) esomeprazole magnesium 20 mg 20 mg PO DAILY 12/06/24 05/07/25 History capsule,delayed release folic acid 0.8 mg capsule 0.8 mg PO DAILY 12/06/24 05/07/25 History nifedipine 10 mg capsule 10 mg PO Q6H PRN frequent 04/02/25 05/07/25 Rx contractions #30 caps Patient hx anesthesia problems: none Family hx anesthesia problems: none Results Review: All pre-operative results and documents have been reviewed as part of the pre-operative evaluation. [facility] Past Medical History Medical History (Updated 05/09/25 @ 10:26 by Dami Ibarra MD) Placenta previa Family History Family History Father Hypertension Grandparent Lung cancer Social History Social History Smoking status: Never smoker Alcohol intake: current Substance use: never Substance use type: marijuana Lack of Transportation: No Lack of Food: Never True Current Housing: I Have Housing Concerned About Future Housing: No Difficulty Paying Gas/Electric Bills: No Difficulty Paying for Meds: No Currently Unemployed: No Education: Master's Degree or Higher Difficulty w/ Childcare or Family Care: No Living arrangements: other Additional living arrangements comments: spouse Occupation/Education: occupation Gender identity (if verbalized by the patient): Female Sexual Orientation (if Verbalized by the Patient): Straight or Heterosexual Spiritual care concerns: No Anes - Eval Final PreProcedure Day of Procedure 05/09/25 10:26 Patient weight: overweight Heart: regular rate and rhythm Lungs: clear to auscultation Airway: Mallampati scale class II Neurological: alert and oriented Last oral intake: >/= 8 hours ASA classification: II Emergent: no Anesthetic plan: proceed Anesthesia type and monitoring: regional spinal and standard monitoring Results Review: All pre-operative results and documents have been reviewed as part of the pre-operative evaluation. Informed Consent: The patient's anesthetic plan and its attendant risks and benefits were discussed with the patient/family/POA. Questions were solicited and answers provided to the satisfaction of the patient/family/POA.
[2025-05-09 10:33] LABS: Hematocrit 38.4 % (37.0-47.0); Hemoglobin 13.4 g/dL (12.0-15.0); Immature Granulocyte Percent A 4.1 % (0-0.5); Lymphocytes Absolute Auto 2.05 K/mm3 (0.9-3.2); Mean Corpuscular HGB Conc 34.9 g/dl (32-36); Mean Corpuscular Hemoglobin 32.8 pg (26-34); Mean Corpuscular Volume 94.1 fl (80-100); Nucleated Red Blood Cells Absolute Auto 0.000 K/mm3 (0.0-0.012); Nucleated Red Blood Cells Perc 0.0 % (0.0-0.2); Platelet Count Result 233 k/mm3 (150-375); Red Blood Count 4.08 M/mm3 (4.2-5.4); White Blood Count 14.3 K/mm3 (4.5-10.0)
[2025-05-09] MEDS: ONDANSETRON INJ 4 MG/2 ML VIAL IV PUSH (11:42)
[2025-05-09] MEDS: FAMOTIDINE 20 MG/2 ML VIAL IV PUSH (11:42)
--- NOTE | 2025-05-09 11:46 | WPDHPUPDATE1 ---
History and Physical Update Update Date/Time: 05/09/25 11:46 History and Physical has been reviewed, including an updated exam of the patient. There are NO changes in the patient's condition. Risks, benefits, and alternatives have been discussed and questions answered. Patient agrees to proceed with procedure.
--- NOTE | 2025-05-09 12:39 | S_PTH ---
PATIENT: Poly Coffey LOC: [facility] U#:[id number] AGE/SX: 30/F ROOM: 288 RE05/09/[address]: Eleuterio Mccollum MD : 1995 BED: 00 DIS: 05/11/2025 SPEC #: [id number] RECD: 05/09/25 13:29 STATUS: JULISSA REHerberth #: [id number] LEOBARDO: 05/09/25 12:[address]: Eleuterio Mccollum DEPT: [facility] Surgical RECD BY: Amber Bianchi ENTERED: 05/09/25 13:29 SP TYPE: Surgical OTHR DR: MARBLE HELPER PHYSICIAN Tissues: A - Placenta Procedures: Hematoxylin and Eosin Stain Gross and Microscopic Level 5
--- NOTE | 2025-05-09 13:14 | W.PM.OBCSD ---
OB - Delivery Note Procedure Delivery date: 05/09/25 Pre-op diagnosis: Placenta Previa Post-op Diagnosis: Same Induction method: None Delivery monitor: External FHT and External Uterine Procedure Performed: Primary Surgeon: Eleuterio Mccollum MD Anesthesia type: Spinal Description of Procedure/Findings: Findings: Normal-appearing uterus, tubes and ovaries. The placenta was anterior. Techniques: The patient was taken to the operating room where she was prepared and draped in the usual sterile fashion in dorsal supine position with a leftward tilt. She received cefazolin preoperatively. Spinal anesthesia was found to be adequate. A Pfannenstiel skin incision was made and carried through to the underlying layer of the fascia. The fascia was incised in the midline and the incision was extended laterally. The fascia was dissected free of the underlying rectus muscles. The rectus muscles were in the midline. The peritoneum was identified, tented up and entered sharply. The peritoneal incision was extended superiorly and inferiorly with good visualization of the bladder. The bladder blade was placed. The vesicouterine peritoneum was identified, tented up and entered sharply. The incision was extended laterally and the bladder flap was developed. The bladder blade was replaced. The uterus was then incised sharply in a transverse fashion along the lower uterine segment. The incision was extended laterally. The placenta was encountered at the hysterotomy site. A defect was made bluntly through the placenta, and the infant's head was delivered atraumatically to the sterile field, followed by the body. The nose and mouth were bulb suctioned. After a delay, the cord was clamped and cut. The was handed off the field. Cord blood was collected. The placenta was expressed and was passed off the field. The uterus was exteriorized and cleared of all clots and debris. The uterine incision was reapproximated using 0 Monocryl in a running, locked fashion. A second, imbricating layer of the same suture was run. Excellent hemostasis resulted as did excellent reapproximation of the normal anatomy. The uterus was returned the abdomen. The pelvis was irrigated copiously with warmed normal saline. Rigorous hemostasis was assured. The fascial layer was reapproximated using 0 Vicryl in a running fashion. The skin was closed with a running, subcuticular stitch of 4 0 Vicryl. Dermaflex was applied externally. Sponge, lap, needle and instrument counts were correct. The patient was taken to the recovery room in stable condition. The infant went to the nursery in stable condition. I was present and scrubbed the entire procedure. Specimen: Yes (Cord blood, placenta) Estimated Blood Loss: 845 Drains: Yes ([place]) Packing: No Pathology: Yes (Placenta) Complications: None Condition: Stable Disposition: PACU Baby Date of : 05/09/25 Time of : 12:17 Gestational Age by Date: 36 gender: Female Weight (pounds): 6 Weight (ounces): 7 presentation: vertex Placenta delivery description: Expressed Cord Vessel Description: 3 Vessels, Nuchal Cord and Delayed Cord Clamping score one minute: 7 score five minutes: 9
--- NOTE | 2025-05-09 13:15 | SUR.OPER ---
1014- Called Anesthesia to report pt. BP. Dr. Ibarra aware and orders received to continue IV fluid replacement.
--- NOTE | 2025-05-09 13:21 | P.DS_ITS ---
DS: Admitting Diagnosis Discharge Date 05/11/25 Admitting Diagnosis IUP at 36 4/7 weeks Placenta previa Persistent vaginal bleeding DS: Discharge Diagnosis Discharge Diagnosis (1) delivery delivered: Code(s): O82 - Encounter for delivery without indication Status: Acute OB - DS: Summary OB Procedures : NST OB Procedures Intrapartum: OB Procedures: : None Peripartum Data Procedures: Procedures Operation Date: 05/09/25 11:00 Actual Procedure Side Surgeon p Section Not Applicable Eleuterio Mccollum MD Time Spent with Patient Time attestation: Total time spent providing and/or coordinating discharge services: DS: Data Data Completed and Pending Pending studies at discharge: Pending at discharge 05/09/25 12:39 Surgical [PTH] Routine Labs on day of discharge: Labs from last 24 hours 05/09/25 10:23 WBC 14.3 H RBC 4.08 L Hgb 13.4 Hct 38.4 MCV 94.1 MCH 32.8 MCHC 34.9 RDW 11.9 Plt Count 233 MPV 11.0 H Immature Gran % (Auto) 4.1 H Neut % (Auto) 72.3 Lymph % (Auto) 14.4 L [place] % (Auto) 7.8 Eos % (Auto) 0.6 Baso % (Auto) 0.8 Lymph # (Auto) 2.05 [place] # (Auto) 1.1 H Eos # (Auto) 0.1 Baso # (Auto) 0.1 Abs Immat Gran (auto) 0.58 H Absolute Neuts (auto) 10.3 H Absolute Nucleated RBC 0.000 Nucleated RBC % 0.0 Discharge Plan Discharge Attending physician on discharge: Eleuterio Mccollum Discharging Clinician: Eleuterio Mccollum Patient Disposition: Home Activity: may shower, may drive after 2 weeks and pelvic rest Diet: regular Wound Care Instructions: incision open to air Discharge Instructions: Call or return if temperature above 100.4? F, increased abdominal pain, increased vaginal bleeding or any new problems. Patient Language: Azeri Stand Alone Forms: General Discharge Information Follow-up/Referrals: Eleuterio Mccollum MD [Physician, BOARD CERTIFIED ORTHODONTIST] - Call for Appointment Discharge Medications: New ibuprofen 600 mg tablet 600 mg PO Q6H PRN (Reason: cramps) Qty: 30 0RF oxycodone-acetaminophen [Endocet] 5-325 mg tablet 1 - 2 tablet PO Q6H PRN (Reason: pain) Qty: 30 0RF Continued esomeprazole magnesium 20 mg capsule,delayed release(DR/EC) 20 mg PO DAILY Classic 28 mg iron- 800 mcg tablet 1 tablet PO DAILY Discontinued folic acid 0.8 mg capsule 0.8 mg PO DAILY nifedipine 10 mg capsule 10 mg PO Q6H PRN (Reason: frequent contractions) Qty: 30 0RF Date of admission: 05/09/25 08:51 Primary Care Provider: PHYSICIAN,PLATFORM POWER TECHNICIAN Admitting Provider: Eleuterio Mccollum Attending physician on admission: Eleuterio Mccollum Condition: Stable
[2025-05-09] MEDS: OXYTOCIN 30 UNITS/NS 500 ML 30 UNITS/500 ML BAG 125 UNITS IV CONT (13:22)
[2025-05-09] MEDS: KETOROLAC 15 MG/ML VIAL (*BKC) IV PUSH ×2 (13:34→19:03)
[2025-05-09] MEDS: fentaNYL CITRATE INJ (*CRX) 100 MCG/2 ML VIAL 25 MCG IV PUSH (14:25)
--- NOTE | 2025-05-09 15:10 | PC.NURSE ---
Patient transferred to post room #288 via stretcher. Support person present. Oriented to unit, room, information board, rooming in, admission packet and security measures. Patient verbalizes understanding.
[2025-05-09] MEDS: DEXTROSE 5%/0.45% SOD CHL 1,000 ML 125 ML IV CONT (17:53)
[2025-05-09] MEDS: SIMETHICONE 80 MG TAB.CHEW PO (17:54)
--- NOTE | 2025-05-09 18:25 | PC.NURSE ---
1825. Breast pump provided due to moms preference to pump and bottle feed infant. Instructions given on cleaning, care, usage, that there should be no pain, pumping schedule for milk production, collection, and storage of human milk. Patient was assessed for correct placement, flange size, to pump for comfort and nipple stretching/stimulation for adequate milk production every 3 hours (8 times in 24 hours) 1-2 times at night. Parents are encouraged to record the pumping schedule on the feeding sheet.?Mother voiced understanding of the education shared along with mom/baby guide and the pump measurement, flange fit handout for additional resource information. Reported to the Primary RN.
[2025-05-09] MEDS: LIDOCAINE 5% PATCH 1 PATCH TRANSDERM (19:02)
[2025-05-10] MEDS: KETOROLAC 15 MG/ML VIAL (*BKC) IV PUSH ×2 (00:45→07:09)
[2025-05-10] MEDS: ACETAMINOPHEN 500 MG TABLET 1000 MG PO ×4 (00:45→19:49)
[2025-05-10] MEDS: oxyCODONE HCL (*CRX) 5 MG TAB IR PO (04:15)
[2025-05-10 04:30] VITALS: BP 126/77; PULSE 64; RESP 16; O2SAT 100
[2025-05-10 05:15] LABS: Hematocrit 36.6 % (37.0-47.0); Hemoglobin 12.6 g/dL (12.0-15.0); Immature Granulocyte Percent A 3.0 % (0-0.5); Lymphocytes Absolute Auto 2.61 K/mm3 (0.9-3.2); Mean Corpuscular HGB Conc 34.4 g/dl (32-36); Mean Corpuscular Hemoglobin 33.3 pg (26-34); Mean Corpuscular Volume 96.8 fl (80-100); Nucleated Red Blood Cells Absolute Auto 0.000 K/mm3 (0.0-0.012); Nucleated Red Blood Cells Perc 0.0 % (0.0-0.2); Platelet Count Result 221 k/mm3 (150-375); Red Blood Count 3.78 M/mm3 (4.2-5.4); White Blood Count 15.8 K/mm3 (4.5-10.0)
[2025-05-10 07:40] VITALS: BP 131/88; PULSE 75; RESP 16; TEMP 37; O2SAT 97
[2025-05-10] MEDS: oxyCODONE HCL (*CRX) 5 MG TAB IR 10 MG PO ×3 (08:13→21:49)
[2025-05-10] MEDS: DOCUSATE SODIUM 100 MG CAPSULE PO ×2 (08:13→16:31)
[2025-05-10] MEDS: MULTIVIT/MIN/PREN/FOL AC/IRON TABLET 1 TAB PO (08:13)
[2025-05-10] MEDS: SIMETHICONE 80 MG TAB.CHEW PO ×3 (08:13→16:31)
--- NOTE | 2025-05-10 09:33 | PM.OBPNVD ---
OB - PN: Subj Subjective Date/time seen: 05/10/25 09:33 Narrative: Pain OK. Tolerating diet. OB - PN: Obj Data Labs 05/10/25 04:48 Labs: Laboratory Results - last 24 hr 05/09/25 05/10/25 10:23 04:48 WBC 14.3 H 15.8 H RBC 4.08 L 3.78 L Hgb 13.4 12.6 Hct 38.4 36.6 L MCV 94.1 96.8 MCH 32.8 33.3 MCHC 34.9 34.4 RDW 11.9 12.0 Plt Count 233 221 MPV 11.0 H 10.3 Immature Gran % (Auto) 4.1 H 3.0 H Neut % (Auto) 72.3 71.6 Lymph % (Auto) 14.4 L 16.5 L [place] % (Auto) 7.8 7.7 Eos % (Auto) 0.6 0.6 Baso % (Auto) 0.8 0.6 Lymph # (Auto) 2.05 2.61 [place] # (Auto) 1.1 H 1.2 H Eos # (Auto) 0.1 0.1 Baso # (Auto) 0.1 0.1 Abs Immat Gran (auto) 0.58 H 0.47 H Absolute Neuts (auto) 10.3 H 11.3 H Absolute Nucleated RBC 0.000 0.000 Nucleated RBC % 0.0 0.0 OB - PN A/P Plan day: 1 Comments: A: POD#1, doing well. P: Routine care. Exam Narrative: AVSS I/O OK ABD soft, nontender, fundus firm. Incision c/d/i. EXT nontender
--- NOTE | 2025-05-10 12:10 | PC.NURSE ---
Introductions were made, then consulted with patient to assess needs related to . Discussed with mother her?plans to feed?her and the?experience so far. Per mother, she was set up with a hospital breast pump yesterday by her Primary RN and she is pumping every 3 hours or so, encouraged mother to continue to consistently pump. Handouts given on pumping and milk storage guidelines. Resources provided for inpatient and outpatient services with the feeding sheet, mom/baby guide and name written on the communication board. Mother voiced understanding of information and will call if there is a request for assistance. Reported to the Primary RN.
[2025-05-10 12:16] VITALS: BP 115/62; PULSE 78; RESP 16; TEMP 36.3; O2SAT 97
[2025-05-10] MEDS: IBUPROFEN 600 MG TABLET PO ×2 (13:02→19:49)
--- NOTE | 2025-05-10 13:27 | WPDANESPN ---
Anes - Prog Note Post-Op Date/Time: 05/10/25 13:27 Vital Signs: Last Vital Signs Temp 36.3 C L 05/10/25 12:16 Pulse 78 05/10/25 12:16 Resp 16 05/10/25 12:16 BP 115/62 05/10/25 12:16 Pulse Ox 97 05/10/25 12:16 O2 Del Method Room Air 05/10/25 04:30 Pain Score (VAS): 0 I/O: Intake & Output 05/09/25 05/10/25 05/10/25 23:59 07:59 15:59 Intake Total 540 240 Output Total 450 5000 1000 Balance 90 -5000 -760 Laboratory Tests 05/10/25 04:48 05/10/25 04:48 WBC 15.8 H RBC 3.78 L Hgb 12.6 Hct 36.6 L MCV 96.8 MCH 33.3 MCHC 34.4 RDW 12.0 Plt Count 221 MPV 10.3 Immature Gran % (Auto) 3.0 H Neut % (Auto) 71.6 Lymph % (Auto) 16.5 L [place] % (Auto) 7.7 Eos % (Auto) 0.6 Baso % (Auto) 0.6 Lymph # (Auto) 2.61 [place] # (Auto) 1.2 H Eos # (Auto) 0.1 Baso # (Auto) 0.1 Abs Immat Gran (auto) 0.47 H Absolute Neuts (auto) 11.3 H Absolute Nucleated RBC 0.000 Nucleated RBC % 0.0 Patient Feedback: Patient satisfied with anesthetic care.
--- NOTE | 2025-05-10 13:27 | WPDANLDPN2 ---
Anes-Prog Note L&D Date/Time: 05/10/25 13:27 Comfortable throughout: section Neuraxial method: spinal Epidural/Spinal procedure site: clean & non-tender Neuro status: Neuro function grossly intact. Cardiovascular status: normal Respiratory status: normal Airway patency: baseline Mental status: baseline Post-Op hydration status: normal Vital Signs: Last Vital Signs Temp 36.3 C L 05/10/25 12:16 Pulse 78 05/10/25 12:16 Resp 16 05/10/25 12:16 BP 115/62 05/10/25 12:16 Pulse Ox 97 05/10/25 12:16 O2 Del Method Room Air 05/10/25 04:30 Pain score (VAS): 0 I/O: Intake & Output 05/09/25 05/10/25 05/10/25 23:59 07:59 15:59 Intake Total 540 240 Output Total 450 5000 1000 Balance 90 -5000 -760 Post-procedural complaints: none Patient feedback: Patient satisfied with anesthetic care.
[2025-05-10] MEDS: LIDOCAINE 5% PATCH 1 PATCH TRANSDERM (19:49)
[2025-05-10 19:50] VITALS: BP 126/69; PULSE 81; RESP 16; TEMP 37.1; O2SAT 98
[2025-05-11] MEDS: IBUPROFEN 600 MG TABLET PO ×2 (01:31→08:12)
[2025-05-11] MEDS: ACETAMINOPHEN 500 MG TABLET 1000 MG PO ×2 (01:31→08:12)
[2025-05-11 08:05] VITALS: BP 128/75; PULSE 88; RESP 20; TEMP 36.8; O2SAT 98
[2025-05-11] MEDS: MULTIVIT/MIN/PREN/FOL AC/IRON TABLET 1 TAB PO (08:12)
[2025-05-11] MEDS: PANTOPRAZOLE 40 MG TABLET PO (08:12)
[2025-05-11] MEDS: SIMETHICONE 80 MG TAB.CHEW PO (08:12)
[2025-05-11] MEDS: DOCUSATE SODIUM 100 MG CAPSULE PO (08:12)
--- NOTE | 2025-05-11 08:45 | PC.NURSE ---
Patient viewed the discharge video Mother & Baby Care, The First Two Weeks. Patient was given the opportunity and encouraged to ask questions. Patient verbalized understanding of information shared and has been given the mother/baby guide for home reference.
--- NOTE | 2025-05-11 10:12 | P.PNOB_ITS ---
OB - PN: Subj Subjective Date/time seen: 05/11/25 10:12 Narrative: Pain OK. Tolerating diet. Would like to go home. OB - PN: Obj Data Labs 05/10/25 04:48 OB - PN A/P Plan day: 2 Comments: A: POD#2, doing well. P: Home to f/u 4 weeks. Exam 2 Narrative: AVSS ABD soft, nontender, fundus firm. Incision c/d/i. EXT nontender
[2025-05-12 15:13] VITALS: BP 119/72; PULSE 85; RESP 20; TEMP 36.5; O2SAT 97
== END 2025-05-11 11:20 | disposition home or self-care (01) | DRG 786 ==
LOC: ANHLDR 13:22 → ANHOB2 15:20
PROVIDERS: Admitting Provider Obstetrics & Gynecology; Visit Provider Obstetrics & Gynecology
PROC: 10D00Z1 Extraction of Products of Conception, Low, Open Approach (ICD-10-PCS; CPT 59514; principal; 2025-05-09 11:00)
DX: O44.03 Complete placenta previa NOS or without hemorrhage, third trimester (principal); O60.13X0 Preterm labor second trimester with preterm delivery third trimester, not applicable or unspecified; Z3A.36 36 weeks gestation of pregnancy; Z37.0 Single live birth; O69.81X0 Labor and delivery complicated by cord around neck, without compression, not applicable or unspecified
CPT/HCPCS: 36415; 85025; 88307; A9270; J1596; J1885; J2274; J2371; J2405; J2590; J3010; J7120